=== PATIENT | male | born 1955 | race Caucasian/White ===

== ENCOUNTER 2016-10-09 02:03 | Emergency (ER) | payer BC ==
[~2016-10-09] VITALS: Ht 177.8 cm; Wt 174.0 kg
[~2016-10-09 02:03] MED LIST: AMX500 PO; LRTUNK PO; RIFA300C34 PO; SYN75 PO
[2016-10-09 02:12] VITALS: TEMP 36.6; Ht 177.8 cm; Wt 174.0 kg
[2016-10-09] MEDS ORDERED: MoRPHine SULFATE 10 MG/ML CARP/VIAL IV STA (02:29)
[2016-10-09] MEDS ORDERED: ONDANSETRON INJ 2 MG/ML 2 ML VIAL IV STA (02:29)
[2016-10-09] MEDS ORDERED: SODIUM CHLORIDE 0.9% 1000ML 1,000 ML IV ONE (02:30)
[2016-10-09 02:40] LABS: BASO % 0.4 %; BASO ABS # 0.04 K/uL (0-0.2); COMPLETE YES; EOS % 0.5 %; HEMATOCRIT 48.4 % (42-52); IG% 0.3 %; LYMPH ABS # 2.11 K/uL (1.2-3.4); MEAN CELL VOLUME 88.3 fL (80-100); MEAN CORPUSCULAR HEMOGLOBIN 30.7 pg (25-34); MEAN CORPUSCULAR HGB CONC 34.7 g/dl (32-36); MEAN PLATELET VOLUME 11.9 fL (7.4-10.4); MONO % 9.8 %; PLATELET COUNT 242 K/uL (130-400); RED BLOOD COUNT 5.48 M/uL (4.7-6.1); WHITE BLOOD COUNT 10.57 K/uL (4.8-10.8)
[2016-10-09 02:45] LABS: ISTAT IONIZED CALCIUM 1.17 mmol/l (1.12-1.32)
[2016-10-09] MEDS ORDERED: OPTIRAY 320 IV PRN (02:45)
[2016-10-09 02:57] LABS: BUN/CREATININE RATIO 19.3 (10-20); CALCIUM 8.7 mg/dl (8.5-10.1); POTASSIUM 3.8 mmol/L (3.5-5.1)
[2016-10-09 02:58] VITALS: O2SAT 93
[2016-10-09 02:59] LABS: ALB/GLOB RATIO 0.7 (0.9-2)
[2016-10-09] MEDS ORDERED: LEVO100T7 PO (03:53)
[2016-10-09] MEDS ORDERED: FLOVENT HFA 110MCG INH (04:01)
[2016-10-09] MEDS ORDERED: PRED10TA PO (04:01)
[2016-10-09] MEDS ORDERED: PROAIR HFA INH (04:06)
[2016-10-09] MEDS ORDERED: MELO15TA4 PO (04:08)
[2016-10-09] MEDS ORDERED: FURO-85 PO (04:09)
[2016-10-09] MEDS ORDERED: MULT-506 PO (04:10)
[2016-10-09] MEDS ORDERED: CHOL1000 PO (04:12)
[2016-10-09] MEDS ORDERED: ATOR-22 PO (04:13)
--- NOTE | 2016-10-09 04:31 | EMERGENCY ROOM VISIT NOTE ---
History First contact with patient: 02:26 Chief Complaint: ABDOMINAL PAIN Stated Complaint: SEVERE ABDOMINAL PAIN,VOMITING Nursing Triage Summary: Pt reports he has had abdominal pain and abdominal swelling/bloating since noon today. Pt reports the pain continued to get worse this evening. Reports nausea, but no vomiting. Diarrhea since Wednesday. No BM today. Denies PMH of abdominal issues. Stomach protuberant, hard, and tender to palpation. Pt moaning in pain. History of Present Illness The patient is a 61 year old male who presents to the Emergency Room with complaints of severe abdominal pain that has been worsening for the past 13 or 14 hours. The patient states that he has had multiple episodes of diarrhea over the past one to 2 weeks. He has had upwards of 15 watery stools daily during this interval. He states that over the past 24 hours he has had no diarrhea, but now has significant abdominal pain. The patient has been nauseated without vomiting. He has a history of hernia repair but no other abdominal surgeries. He additionally has a past history of left hip surgery 4. He does have a history of MRSA. The patient does not report having a fever or chills. No chest pain, chest tightness, or shortness of breath. He has not taken anything at home for his symptoms and rates his pain a 10/10. The pain is diffuse and does not radiate. Review of Systems More than 10 systems were reviewed and otherwise negative with the exception of history of present illness. Past Medical/Surgical History Morbid obesity and dyslipidemia Family History No pertinent family history Social History Smoking Status: Never Smoker Housing Status: lives with family Current/Historical Medications Scheduled Atorvastatin (Lipitor), 20 MG PO DAILY Cholecalciferol (Vitamin D3), 1,000 UNITS PO DAILY Furosemide (Lasix), 20 MG PO DAILY Levothyroxine Sodium (Levothyroxine Sodium), 100 MCG PO DAILY Meloxicam (Mobic), 15 MG PO DAILY Multivitamin (Multivitamin), 1 TAB PO DAILY Prednisone (Prednisone), 10 MG PO DAILY/UD [Flovent Hfa 110MCG], 2 PUFFS INH BID Scheduled PRN [Proair Hfa], 2 PUFFS INH Q6H PRN for SOB/Wheezing Allergies Coded Allergies: No Known Allergies (Verified Allergy, Unknown, ?, 12/05/08) Physical Exam Vital Signs Date Time Temp Pulse Resp B/P Pulse Ox O2 Delivery O2 Flow Rate FiO2 3/24/17 04:03 92 18 10/09/16 04:01 148/120 10/09/16 03:33 92 19 10/09/16 03:31 134/101 10/09/16 03:00 151/90 10/09/16 03:00 97 21 151/87 93 Room Air 10/09/16 02:58 93 Room Air 10/09/16 02:12 36.6 114 20 177/116 93 Room Air Physical Exam VITALS: Vitals are noted on the nurse's note and reviewed by myself. Vital signs stable. GENERAL: Well-developed, well-nourished, morbidly obese white male who appears in severe discomfort in his Emergency Department bed. HEAD: Normocephalic atraumatic. HEART: Regular rate and rhythm without murmurs gallops or rubs. LUNGS: Clear to auscultation bilaterally without wheezes, rales or rhonchi. No retractions or accessory muscle use. ABDOMEN: Hypoactive bowel sounds. Abdomen is distended and exquisitely tender throughout. No CVA tenderness. MUSCULOSKELETAL: No muscle atrophy, erythema, or edema noted. Full range of motion without joint tenderness in all extremities. Medical Decision & Procedures ER Provider Diagnostic Interpretation: Preliminary Findings Only See Final Report For Complete Findings CT ABDOMEN & PELVIS: Duodenal jejunal junction is to the right of midline, query midgut malrotation versus internal hernia. There is a high-grade SBO transition in the mid abdomen. Suspicious areas of pneumatosis, cannot exclude early ischemia. No free air, free fluid, or abscess. Normal appendix. Fatty liver. Contracted gallbladder with questionable stone. No CT evidence of pancreatitis. No obstructive uropathy. Small low-density lesion left kidney. Total left hip prosthesis. Laboratory Results 10/09/16 02:20 Red Blood Count 5.48, Mean Corpuscular Volume 88.3, Mean Corpuscular Hemoglobin 30.7, Mean Corpuscular Hemoglobin Concent 34.7, Mean Platelet Volume 11.9, Neutrophils (%) (Auto) 69.0, Lymphocytes (%) (Auto) 20.0, Monocytes (%) (Auto) 9.8, Eosinophils (%) (Auto) 0.5, Basophils (%) (Auto) 0.4, Neutrophils # (Auto) 7.30, Lymphocytes # (Auto) 2.11, Monocytes # (Auto) 1.04, Eosinophils # (Auto) 0.05, Basophils # (Auto) 0.04 10/09/16 02:20 Test 10/09/16 02:20 10/09/16 02:32 10/09/16 02:40 White Blood Count 10.57 K/uL (4.8-10.8) Red Blood Count 5.48 M/uL (4.7-6.1) Hemoglobin 16.8 g/dL (14.0-18.0) Hematocrit 48.4 % (42-52) Mean Corpuscular Volume 88.3 fL (80-100) Mean Corpuscular Hemoglobin 30.7 pg (25-34) Mean Corpuscular Hemoglobin Concent 34.7 g/dl (32-36) Platelet Count 242 K/uL (130-400) Mean Platelet Volume 11.9 fL (7.4-10.4) Neutrophils (%) (Auto) 69.0 % Lymphocytes (%) (Auto) 20.0 % Monocytes (%) (Auto) 9.8 % Eosinophils (%) (Auto) 0.5 % Basophils (%) (Auto) 0.4 % Neutrophils # (Auto) 7.30 K/uL (1.4-6.5) Lymphocytes # (Auto) 2.11 K/uL (1.2-3.4) Monocytes # (Auto) 1.04 K/uL (0.11-0.59) Eosinophils # (Auto) 0.05 K/uL (0-0.5) Basophils # (Auto) 0.04 K/uL (0-0.2) RDW Standard Deviation 47.3 fL (36.4-46.3) RDW Coefficient of Variation 14.7 % (11.5-14.5) Immature Granulocyte % (Auto) 0.3 % Immature Granulocyte # (Auto) 0.03 K/uL (0.00-0.02) Est Creatinine Clear Calc Drug Dose 126.0 ml/min Estimated GFR () 94.4 Estimated GFR (Non- 81.4 BUN/Creatinine Ratio 19.3 (10-20) Calcium Level 8.7 mg/dl (8.5-10.1) Total Bilirubin 0.7 mg/dl (0.2-1) Aspartate Amino Transf (AST/SGOT) 30 U/L (15-37) Alanine Aminotransferase (ALT/SGPT) 97 U/L (12-78) Alkaline Phosphatase 67 U/L (45-117) Total Protein 7.5 gm/dl (6.4-8.2) Albumin 3.1 gm/dl (3.4-5.0) Globulin 4.4 gm/dl (2.5-4.0) Albumin/Globulin Ratio 0.7 (0.9-2) Lipase 126 U/L (73-393) Bedside Hemoglobin 17.0 g/dl (14.0-18.0) Bedside Hematocrit 50 % (42-52) Bedside Sodium 142 mEq/L (135-144) Bedside Potassium 3.8 mEq/L (3.3-5.0) Bedside Chloride 104 mEq/L (101-112) Bedside Total CO2 23 mEq/l (24-31) Anion Gap 20.0 mmol/L (16-25) Bedside Blood Urea Nitrogen 21 mg/dl (7-18) Bedside Creatinine 1.0 mg/dl (0.6-1.3) Bedside Glucose (other) 137 mg/dl (70-99) Bedside Ionized Calcium (Suleiman) 1.17 mmol/l (1.12-1.32) Bedside Lactic Acid Venous 1.36 mmol/L (0.90-1.70) Medications Administered Medications (Trade) Dose Ordered Sig/Michelle Route Start Time Stop Time Status Last Admin Dose Admin Morphine Sulfate 8 mg 8 mg NOW STAT IV 10/09/16 02:29 10/09/16 02:32 DC 10/09/16 02:43 8 MG Sodium Chloride (Nss 1000ml) 1,000 ml @ 999 mls/hr Q1H1M ONCE IV 10/09/16 02:30 10/09/16 03:30 DC 10/09/16 02:44 999 MLS/HR Ondansetron HCl (Zofran Inj) 4 mg NOW STAT IV 10/09/16 02:29 10/09/16 02:32 DC 10/09/16 02:43 4 MG ED Course Physical exam and history were performed. Nursing notes and EMR were reviewed. Patient appears to have severe abdominal pain bringing him to the emergency department this morning. The patient was brought to my attention by nursing immediately upon his arrival to the department, and the patient was seen rapidly. The patient symptoms have been worsening over the past 13 or 14 hours. On presentation the patient is exquisitely tender, and I had significant concern for the possibility of peritonitis or other significant abdominal process. IV access was established and labs were obtained. I-STAT was performed here the patient was hydrated and medicated as above. I did elect to perform a CT scan of the abdomen and pelvis. The patient blood work is as above and was reviewed. He does not have a significant elevated white blood cell count, significant anemia, bandemia, or gross electrolyte imbalance. Lipase and transaminases were nondiagnostic. Lactic acid level was normal. The patient was reevaluated multiple times with course of his stay. After morphine and Zofran he had significant improvement of his discomfort. I reviewed the initial images of the CT scan with my attending, Dr. Cruz, who remain closely involved in patient care and decision making. We were concerned the patient had a bowel obstruction, and NG tube was placed. The NG tube immediately drained 400 mL of brown liquid. The patient CT scan was officially read by Yessenia and is as above. The CT scan was quite concerning for high-grade small bowel obstruction with suspicious areas of pneumatosis. I discussed this case with the on-call surgeon , Dr. Saenz, who recommended transfer. The case was discussed with the [facility] surgeon, Dr Myrick, who accepted the patient under her service. Appropriate consents were performed and transportation via ALS was coordinated. The patient remained in stable condition until at time of transfer. The chart was completed utilizing [employer] Speech Voice Recognition Software. Grammatical errors, random word insertions, pronoun errors, and incomplete sentences are an occasional consequence of this system due to software limitations, ambient noise, and hardware issues. Any formal questions or concerns about the content, text, or information contained within the body of this dictation should be directly addressed to the provider for clarification. . Medical Decision Differential diagnosis: Etiologies such as appendicitis, diverticulitis, PUD, biliary pathology, UTI, pancreatitis, obstruction, mesenteric ischemia, aortic pathology, infections, inflammatory bowel disease, renal colic, as well as others were entertained. Impression Primary Impression: Small bowel obstruction Additional Impression: Abdominal pain Critical Care I have personally spent greater than 30 minutes of critical care time in the direct management of this patient. This includes bedside care, interpretation of diagnostic studies, and testing, discussion with consultants, patient, and family members, and other required patient management activities. This 30 minutes is in excess of all separately billable procedures. Departure Information Referrals No Doctor, Assigned (PCP) Patient Instructions My [facility] Problem Qualifiers Additional Impression: Abdominal pain Abdominal location: generalized Qualified Codes: R10.84 - Generalized abdominal pain
[2016-10-09] MEDS ORDERED: MoRPHine SULFATE 4 MG/ML 1 ML CARP\\VIAL ONE (04:49)
[2016-10-09 04:57] VITALS: BP 180/112; PULSE 95; O2SAT 93
[2016-10-09] MEDS ORDERED: MoRPHine SULFATE 4 MG/ML 1 ML CARP\\VIAL IV ONE (05:00)
--- NOTE | 2016-10-09 07:22 | DIAGNOSTIC IMAGING REPORT ---
ABDOMEN AND PELVIS CT WITH IV CONTRAST CT DOSE: 2482.50 mGy.cm HISTORY: Generalized abdominal pain. TECHNIQUE: Multiaxial CT images of the abdomen and pelvis were performed following the use of intravenous contrast. COMPARISON STUDY: None. FINDINGS: The lung bases are clear. No pneumoperitoneum. Left total hip arthroplasty. Hepatic steatosis. A 1.4 cm hypodense lesion within the right hepatic lobe favors a cyst. The gallbladder is contracted. There is a punctate stone within the gallbladder. The spleen, adrenal glands, and pancreas are unremarkable. A punctate stone within the lower pole the right kidney. No hydronephrosis. 6 mm hypodense lesion within the upper and lower pole of the left kidney are too small to characterize. Normal bladder. The majority of the colon is decompressed. Normal appendix. Multiple dilated gas and fluid-filled loops of small bowel within the abdomen consistent with a small bowel obstruction. A clear transition point is difficult to define but may be located within the distal ileum. Distended loops of bowel measure up to 5.3 cm. IMPRESSION: 1. Multiple distended loops of small bowel within the abdomen. A clear transition point is difficult to define but may be located within the distal ileum. Therefore, this is consistent with a partial small bowel obstruction. 2. Right-sided nephrolithiasis. No hydronephrosis. 3. Hepatic steatosis. 4. Additional findings as described above. Electronically signed by: Vijay Mccollum M.D. 10/09/2016 7:21 AM Dictated Date/Time: 10/09/2016 7:14 AM
== END 2016-10-09 04:57 | disposition short-term general hospital (02) ==
LOC: C.EDB 02:07 → C.EDA 04:57
DX: K56.60 Unspecified intestinal obstruction (principal); R10.84 Generalized abdominal pain; Z98.890 Other specified postprocedural states; Z86.14 Personal history of Methicillin resistant Staphylococcus aureus infection; E66.01 Morbid (severe) obesity due to excess calories; E78.5 Hyperlipidemia, unspecified; Z79.899 Other long term (current) drug therapy

== ENCOUNTER → 2017-03-30 | Outpatient (CLI) | payer BC ==
[~2017-03-30] MED LIST changes: -AMX500 PO; +ATOR-22 PO; +CHOL1000 PO; +FLOVENT HFA 110MCG INH; +FURO-85 PO; +LEVO100T7 PO; -LRTUNK PO; +MELO15TA4 PO; +MULT-506 PO; +PRED10TA PO; +PROAIR HFA INH; -RIFA300C34 PO; -SYN75 PO
== END | disposition home or self-care (01) ==
LOC: C.PATHSPEC 16:15
PROVIDERS: ATTEND Surgery
DX: K21.0 Gastro-esophageal reflux disease with esophagitis (principal)

== ENCOUNTER 2020-09-05 13:02 | Inpatient (IN) ==
--- OUTSIDE RECORDS SUMMARY | 2020-09-05 13:07 | External Medical Summary | Continuity of Care Document ---
:1955 Author Name Rae Knight, Provider Address Unavailable Unavailable , Care Team Providers Name Role Phone Marlee Knight, Kuldeep Woodward Unavailable [email or web address], [email or web address] Unavailable Unavailable Problems Active medical history not documented Allergies and Adverse Reactions Allergy history not documented Medications Medications not documented Procedures Procedures not documented Immunizations Immunizations not documented Plan of Treatment Planned Observations Planned Goals not documented Results No Known Results Results not documented Encounters Appointment; Kuldeep Whalen M.D. 10-Feb-2010 11:30 Encounter Diagnosis: Problem not documented
[2020-09-05 13:43] LABS: Albumin Level 2.6 gm/dl (3.4-5.0); Calcium 8.6 mg/dl (8.5-10.1); Creatinine Clr Calc Pharmacy 106.3 ml/min; Est GFR (African American) 80.9; Est GFR (Non-African American) 69.8; Magnesium 2.1 mg/dl (1.8-2.4); Potassium 3.2 mmol/L (3.5-5.1)
[2020-09-05 13:45] LABS: Hematocrit (blood only) 45.2 % (42-52); Hemoglobin 15.7 g/dL (14.0-18.0); Mean Corpuscular Hemoglobin 30.8 pg (25-34); Mean Corpuscular Hgb Conc 34.7 g/dL (32-36); Mean Corpuscular Volume 88.6 fL (80-100); Mean Platelet Volume 11.6 fL (7.4-10.4); Platelet Count 234 K/uL (130-400); RDW Coefficient of Variation 13.8 % (11.5-14.5); RDW Standard Deviation 45.3 fL (36.4-46.3); White Blood Count 5.86 K/uL (4.8-10.8)
[2020-09-05 13:46] LABS: Partial Thromboplastin Ratio 1.3; Partial Thromboplastin Time 33.2 Seconds (21.0-31.0); Prothrombin Time 10.5 Seconds (9.0-12.0)
[2020-09-05 13:48] LABS: Albumin Globulin Ratio 0.5 (0.9-2); Bilirubin,Total 0.5 mg/dl (0.2-1); Total Protein 7.6 gm/dl (6.4-8.2); Troponin I 0.024 ng/ml (0-0.045)
--- NOTE | 2020-09-05 13:48 | XRay Report ---
XR chest 1V portable CLINICAL HISTORY: Resp sx c/w COVID-19 COMPARISON STUDY: Chest radiograph May 18, 2009. FINDINGS: Dual lead left subclavian pacemaker is in place. Elevation/eventration of the right hemidia phragm is unchanged. Moderate cardiomegaly is unchanged. Mild to bilateral hilar prominence is noted. Moderate multifocal bilateral opacities are present. There is mild interstitial thickening. IMPRESSION: 1. Mild to moderate bilateral airspace opacities with interstitial thickening. An infectious process is favored. Pulmonary edema could appear similar although is considered less likely. Radiographic fol low-up is recommended to ensure resolution. 2. Moderate cardiomegaly. ACT 112: Negative or not required by law. Electronically signed by: Kentrell Perez M.D. 09/05/2020 1:47 PM
[2020-09-05 14:09] LABS: Basophils # (auto) 0.02 K/uL (0-0.2); Basophils % (auto) 0.3 %; Immature Granulocytes # (auto) 0.02 K/uL (0.00-0.02); Immature Granulocytes % (auto) 0.3 %; Lymphocytes % (auto) 18.8 %; Monocytes # (auto) 0.29 K/uL (0.11-0.59); Monocytes % (auto) 4.9 %; Neutrophils # (auto) 4.43 K/uL (1.4-6.5); Neutrophils % (auto) 75.7 %
[2020-09-05] MEDS ORDERED: cefTRIAXone SODIUM 1,000 MG/50 ML BAG IV STA (14:13)
[2020-09-05] MEDS ORDERED: AZITHROMYCIN 500 MG in DEXTROSE 5% 250 ML IV STA (14:13)
[2020-09-05 14:26] LABS: Influenza A virus by PCR Negative (Neg); Influenza B virus by PCR Negative (Neg); RSV by PCR Negative (Neg)
--- NOTE | 2020-09-05 14:29 | History & Physical Report ---
Date of Service September 05, 2020 Assessment & Plan (1) Acute respiratory failure with hypoxia: Using accessory muscles. Secondary to COVID-19 pneumonia. Procalcitonin negative for secondary bacterial infection therefore discontinue further antibiotics. (2) Pneumonia due to COVID-19 virus: Lack of evidence of efficacy of remdesivir and convalescent plasma with potential risk this far out from illness. Dexamethasone 6 mg IV daily for total of 10 days (3) Elevated d-dimer: This appears to be in line with his COVID-19 infection. Doubtful pulmonary embolism and as he is noted not to be improving. Consider outpatient short-term low-dose anticoagulation. Wells score 0 - 1.5 depending on mobilization. (4) Obstructive sleep apnea: Continue CPAP at night with 6 cm H2O (5) Congestive heart failure: Unknown if diastolic versus systolic. Appears to be euvolemic at present. Continue Entresto and metoprolol succinate. Continue Lasix 20 mg p.o. twice daily (6) Presence of combination internal cardiac defibrillator (ICD) and pacemaker: Patient is unclear on the reasons for this pain implanted, currently not in a paced rhythm. Monitor on telemetry. (7) Hypothyroidism: TSH 2.18 Continue levothyroxine 112 mcg p.o. every morning (8) BPH (benign prostatic hyperplasia): Continue tamsulosin 0.4 mg at bedtime (9) Chronic hip pain: Continue home dose of duloxetine and tramadol. (10) Acne rosacea: Continue doxycycline 20 mg twice daily (11) DVT prophylaxis: Lovenox 80 mg SQ twice daily (increased dose due to morbid obesity and COVID-19 pneumonia) Admission and Anticipated Discharge Date Admission Date: September 05, 2020 History of Present Illness Chief Complaint: COVID-19 symptoms Primary Care Provider: Gregory Diamond Nico Cancino is a 65-year-old male who presents to the ER with 1 week of shortness of breath. He reports that he had his first COVID-19 vaccination 12 days ago. He initially was doing well after this. However, 1 week ago he started having fever, chills, shortness of breath, cough, change in taste, myalgias, mild headache, diarrhea. He denies any nausea, vomiting, chest or abdominal pain. No known COVID-19 exposure. His underwent a lumpectomy today and had a negative Covid test 4 days ago and is currently asymptomatic. No prior past medical history on file. Somewhat limited by patient recollection and educated guesses from his medication list. He reports only specialist is his cardiology Dr Vallejo whom he sees for congestive heart failure. Unknown reason for his ICD/pacemaker other than it was put in under an emergency per patient recollection. He reports a possible mild myocardial infarction last summer although this was treated medically with no stents or bypass and he reports his cardiac catheterization showed nonobstructive coronary artery disease. He also reports a history of congestive heart failure although unknown ejection fraction. No known valvular heart disease per patient recollection. Reports stable benign prostatic hypertrophy on tamsulosin -no current lower urinary tract symptoms. 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 He denies taking any chronic suppressive antibiotic therapy. Reports taking duloxetine and tramadol for his ongoing left hip pain. Medical and surgical history otherwise stable as below. In the ER chest x-ray was concerning for mild to moderate bilateral airspace opacities concerning for viral pneumonia. He was initially treated with ceftriaxone and azithromycin. He was referred to medicine for admission and ongoing management of hypoxia and bilateral pneumonia. Allergies Allergy/AdvReac Type Severity Reaction Status Date / Time No Known Allergies Allergy Unknown ? Verified 09/05/20 15:01 Home Medications Medication Instructions Recorded Confirmed Type atorvastatin 20 mg PO PM #0 tab 10/09/16 09/05/20 History cholecalciferol (vitamin D3) 25 mcg PO QAM #0 tab 10/09/16 09/05/20 History [Vitamin D3] furosemide [Lasix] 20 mg PO BID #0 tab 10/09/16 09/05/20 History multivitamin 1 tab PO QAM #0 tab 10/09/16 09/05/20 History acetaminophen [Tylenol Arthritis] 1,300 mg PO Q12H PRN 09/05/20 09/05/20 History cyclobenzaprine 10 mg PO DIRECTED PRN 09/05/20 09/05/20 History doxycycline hyclate 20 mg PO BID 09/05/20 09/05/20 History [id number]-acetaminophen 30 ml PO QID PRN 09/05/20 09/05/20 History [Vicks NyQuil] duloxetine 60 mg PO QAM 09/05/20 09/05/20 History levothyroxine 112 mcg PO QAM 09/05/20 09/05/20 History metoprolol succinate 50 mg PO QAM 09/05/20 09/05/20 History sacubitril-valsartan [Entresto] 1 tab PO BID 09/05/20 09/05/20 History tamsulosin 0.4 mg PO HS 09/05/20 09/05/20 History tramadol 100 mg PO QAM 09/05/20 09/05/20 History Past Med/Surg History Medical History (Updated 09/06/20 @ 10:41 by Natan Ferguson MD) Acne rosacea BPH (benign prostatic hyperplasia) High cholesterol Hypothyroidism Obstructive sleep apnea Presence of combination internal cardiac defibrillator (ICD) and pacemaker Septic hip Surgical History (Updated 09/05/20 @ 16:16 by Natan Ferguson MD) History of arthroscopic knee surgery History of hip surgery x4 with MRSA infection History of tonsillectomy History of umbilical hernia repair History of uvulectomy Social History Smoking Status: Former smoker Tobacco Type: Smokeless Tobacco (Dip or Chew) Do You Dip or Chew Tobacco: Yes; Hx Alcohol Use: No Hx Substance Use: No Preferred Language: Venezuelan Communication Ability: Effective Beliefs That Will Affect Care: None Current Living Situation: Spouse Current Living Situation Comment: At home with Feels Safe at Home: Yes Safety Concerns: Feels Safe At This Time Assistive Devices: CPAP and Glasses Review of Systems Review of Systems: All systems reviewed & are unremarkable except as noted in HPI & below Physical Exam Constitutional: well developed, well nourished and + morbidly obese; no acute distress Eyes: PERRL, conjunctivae normal, anicteric sclerae ENMT: Ears: no external ear abnormality Nose: no external nose abnormality Mouth: + dry oral mucous membranes Neck: trachea midline, no thyromegaly Respiratory: + labored breathing, + retractions, + uses accessory muscles and able to speak in complete sentences Auscultation: + diminished lung sounds (Poor inspiratory effort throughout) and + wheezes (Mild expiratory wheeze); no rales and no rhonchi Cardiovascular: Rate/Rhythm: regular rate and regular rhythm Heart Sounds: no murmur Vessels: no JVD Extremities: normal capillary refill and + pedal edema (Trace pitting in ankles only); no calf tenderness Gastrointestinal (Abdomen): normal bowel sounds, soft, nontender, no hepatosplenomegaly Musculoskeletal: no cyanosis or clubbing, extremities motor strength 5/5 Skin: no rashes, warm and dry Neurologic: moves all extremities and awake; no focal motor deficits and not confused Psychiatric: A+Ox3, euthymic affect Genitourinary: no CVA tenderness Results & Data Results & Data ([facility]) Vital Signs (Past 12 Hours) Vital Signs Temp Pulse Resp BP Pulse Ox 09/05/20 13:25 93 09/05/20 13:15 37.1 C 101 H 24 138/82 90 Diagnostic Findings XR chest 1V portable IMPRESSION: 1. Mild to moderate bilateral airspace opacities with interstitial thickening. An infectious process is favored. Pulmonary edema could appear similar although is considered less likely. Radiographic follow-up is recommended to ensure resolution. 2. Moderate cardiomegaly. Medications Administered ER medications given: Ceftriaxone 1 g IV Azithromycin 500 mg IV ECG Indication: SOB/dyspnea Rate (beats per minute): 97 Rhythm: normal sinus (With premature supraventricular complexes) Findings: + RBBB Change: the following changes noted (PVC no longer present) Code Status & VTE Plan Code Status Full as discussed with the patient VTE Prophylaxis Plan VTE Prophylaxis will be ordered: Yes PG Care Time/CCT Total # of Minutes Spent Total Time Spent with Patient: Total time spent is greater than 50% in coordination of care (as documented) at patient's floor/unit and/or counseling patient: Coding Level of Care Code 16665 Initial Inpt Care Lvl 3 Diagnoses Acute respiratory failure with hypoxia J96.01 Pneumonia due to COVID-19 virus U07.1; J12.82 Elevated d-dimer R79.89 Obstructive sleep apnea G47.33 Congestive heart failure I50.9 Presence of combination internal cardiac defibrillator (ICD) and pacemaker Z95.810 Hypothyroidism E03.9 BPH (benign prostatic hyperplasia) N40.0 Chronic hip pain M25.559; G89.29 Acne rosacea L71.9 DVT prophylaxis Z29.9
--- NOTE | 2020-09-05 14:39 | Emergency Department Note ---
History of Present Illness General Chief complaint: Shortness of Breath/Dyspnea Time Seen by Provider: 09/05/20 13:07 Source: patient Mode of arrival: ambulatory Limitations: no limitations History of Present Illness Provider complaint: Cough and shortness of breath Resents to the ED with a chief complaint of not feeling well for the past week. He states that his symptoms are progressively worsening. He reports a cough for the past 2 days. He reports diarrhea daily for about a week. He reports shortness of breath that worsened last night and into today. He has fatigue and has had intermittent fevers. He reports having had a Covid immunization #1, 12 days ago. The patient states that his shortness of breath is significantly worse with exertion. He has not taken anything for his symptoms. Home Medications Medication Instructions Recorded Confirmed Type ATORVASTATIN (LIPITOR) 20 mg PO DAILY #0 tab 10/09/16 History CHOLECALCIFEROL (VITAMIN D3) 1,000 unit PO DAILY #0 tab 10/09/16 History FLOVENT HFA 110MCG 2 puff INHALATION BID #0 10/09/16 History FUROSEMIDE (LASIX) 20 mg PO DAILY #0 tab 10/09/16 History LEVOTHYROXINE SODIUM 100 mcg PO DAILY #0 tab 10/09/16 History MELOXICAM (MOBIC) 15 mg PO DAILY #0 tab 10/09/16 History Multivitamin 1 tab PO DAILY #0 tab 10/09/16 History PROAIR HFA 2 puff INHALATION Q6H PRN #0 10/09/16 History Prednisone 10 mg PO DAILY/UD #0 tab 10/09/16 History Allergies Allergy/AdvReac Type Severity Reaction Status Date / Time No Known Allergies Allergy Unknown ? Verified 12/05/08 12:02 Past Med/Surg History Medical History (Updated 09/05/20 @ 14:39 by Taco Armijo DO) High cholesterol Presence of combination internal cardiac defibrillator (ICD) and pacemaker Social History Smoking Status: Never smoker Tobacco Type: Smokeless Tobacco (Dip or Chew) Feels Safe at Home: Yes Review of Systems A total of 10 systems reviewed and were otherwise negative Physical Exam Vital Signs Vital Signs - 24 hr 09/05/20 13:06 09/05/20 13:08 09/05/20 13:15 Temperature 37.1 C Temperature Source Oral Pulse Rate 97 H 97 H 101 H Pulse Rate from SpO2 Sensor 100 H 99 H Respiratory Rate 25 H 24 24 Respiratory Effort / Characteristics Short of Breath Respiratory Depth Deep Respiratory Pattern Tachypnea Blood Pressure 138/82 138/82 Blood Pressure Mean 100 100 Blood Pressure Position Sitting Pulse Oximetry 90 91 90 Oxygen Delivery Method Room Air Oxygen Flow Rate Sepsis Recent Fever Within 48 Hours No Sepsis New/Unexplained Change in Mental Status No Sepsis Action Taken by Nursing Physician Notified 09/05/20 13:25 09/05/20 13:30 09/05/20 14:00 Temperature Temperature Source Pulse Rate 96 H 84 Pulse Rate from SpO2 Sensor 94 H 85 Respiratory Rate 25 H 23 Respiratory Effort / Characteristics Respiratory Depth Respiratory Pattern Blood Pressure Blood Pressure Mean Blood Pressure Position Pulse Oximetry 93 91 95 Oxygen Delivery Method Nasal Cannula Oxygen Flow Rate 2 Sepsis Recent Fever Within 48 Hours Sepsis New/Unexplained Change in Mental Status Sepsis Action Taken by Nursing 09/05/20 14:30 Temperature Temperature Source Pulse Rate 84 Pulse Rate from SpO2 Sensor 84 Respiratory Rate Respiratory Effort / Characteristics Respiratory Depth Respiratory Pattern Blood Pressure Blood Pressure Mean Blood Pressure Position Pulse Oximetry 97 Oxygen Delivery Method Oxygen Flow Rate Sepsis Recent Fever Within 48 Hours Sepsis New/Unexplained Change in Mental Status Sepsis Action Taken by Nursing CONSTITUTIONAL/VITAL SIGNS: Reviewed / noted above. GENERAL: Non-toxic in appearance. Obese. INTEGUMENTARY: Warm, dry, and [place]. HEAD: Normocephalic. EYES: without scleral icterus or trauma. ENT/OROPHARYNX: clear and moist. LYMPHADENOPATHY/NECK: Is supple without lymphadenopathy or meningismus. RESPIRATORY: Lungs reveal crackles in the entire right lung jasso as well as the left mid and lower lung jasso with mild increased work of breathing at rest. CARDIOVASCULAR: Regular rate and rhythm. GI/ABDOMEN: Soft and nontender. No organomegaly or pulsatile mass. No rebound or guarding. Normal bowel sounds. EXTREMITIES: Warm and well perfused. BACK: No CVA tenderness. NEUROLOGICAL: Intact without focal deficits. PSYCHIATRIC: normal affect. MUSCULOSKELETAL: Normally developed with good muscle tone. TRIAGE NURSING DOCUMENTATION REVIEWED. Course Administered Medications Discontinued Medications Ceftriaxone Sodium (Rocephin) 1,000 mg in 50 mls @ 100 mls/hr IV NOW STA Stop: 09/05/20 14:42 Last Admin: 09/05/20 14:43 Dose: 100 mls/hr Documented by: [id number] Medical Decision Making Differential Diagnosis The differential was considered includes acute myocardial infarction, acute coronary syndrome, myocarditis, pericarditis, pericardial effusions /tamponad, esophageal perforation, pulmonary embolism, pneumonia, pneumothorax, cardiomyopathy, congestive heart, anemia , COPD/asthma exacerbation. Medical Records Attestation: I reviewed the patient's medical records. Home Medications Current Medication List: was personally reviewed by me Laboratory Data Attestation: I reviewed the patient's lab results. Result diagrams: 09/05/20 13:18 09/05/20 13:18 Lab Results 09/05/20 09/05/20 09/05/20 Range/Units 13:15 13:15 13:15 WBC (4.8-10.8) K/uL RBC (4.7-6.1) M/uL Hgb (14.0-18.0) g/dL Hct (42-52) % MCV (80-100) fL MCH (25-34) pg MCHC (32-36) g/dL RDW Std Deviation (36.4-46.3) fL RDW Coeff of Matthew (11.5-14.5) % Plt Count (130-400) K/uL MPV (7.4-10.4) fL Immature Gran % (Auto) % Neut % (Auto) % Lymph % (Auto) % Craven % (Auto) % Eos % (Auto) % Baso % (Auto) % Neut # (Auto) (1.4-6.5) K/uL Lymph # (Auto) (1.2-3.4) K/uL Craven # (Auto) (0.11-0.59) K/uL Eos # (Auto) (0-0.5) K/uL Baso # (Auto) (0-0.2) K/uL Immature Gran # (Auto) (0.00-0.02) K/uL PT (9.0-12.0) Seconds INR (0.9-1.1) APTT (21.0-31.0) Seconds PTT Ratio Sodium (136-145) mmol/L Potassium (3.5-5.1) mmol/L Chloride (98-107) mmol/L Carbon Dioxide (21-32) mmol/L Anion Gap (3-11) BUN (7-18) mg/dl Creatinine (0.6-1.4) mg/dl Est Cr Clr Drug Dosing ml/min Est GFR ( Amer) Est GFR (Non-Af Amer) BUN/Creatinine Ratio (10-20) Glucose (70-99) mg/dl Calcium (8.5-10.1) mg/dl Magnesium (1.8-2.4) mg/dl Total Bilirubin (0.2-1) mg/dl AST (15-37) U/L ALT (12-78) U/L Alkaline Phosphatase (45-117) U/L Troponin I (0-0.045) ng/ml NT-Pro-B Natriuret Pep (0-900) pg/ml Total Protein (6.4-8.2) gm/dl Albumin (3.4-5.0) gm/dl Globulin (2.5-4.0) gm/dl Albumin/Globulin Ratio (0.9-2) COVID-19 Eval Order CovFluRsv at [facility] SARS-CoV-2 (PCR) POSITIVE A* (Negative) Influenza Type A (PCR) Negative (Neg) Influ A Molecular Assay Cancelled Influenza Type B (PCR) Negative (Neg) Influ B Molecular Assay Cancelled RSV (RT-PCR) Negative (Neg) 09/05/20 09/05/20 09/05/20 Range/Units 13:18 13:18 13:18 WBC 5.86 (4.8-10.8) K/uL RBC 5.10 (4.7-6.1) M/uL Hgb 15.7 (14.0-18.0) g/dL Hct 45.2 (42-52) % MCV 88.6 (80-100) fL MCH 30.8 (25-34) pg MCHC 34.7 (32-36) g/dL RDW Std Deviation 45.3 (36.4-46.3) fL RDW Coeff of Matthew 13.8 (11.5-14.5) % Plt Count 234 (130-400) K/uL MPV 11.6 H (7.4-10.4) fL Immature Gran % (Auto) 0.3 % Neut % (Auto) 75.7 % Lymph % (Auto) 18.8 % Craven % (Auto) 4.9 % Eos % (Auto) 0.0 % Baso % (Auto) 0.3 % Neut # (Auto) 4.43 (1.4-6.5) K/uL Lymph # (Auto) 1.10 L (1.2-3.4) K/uL Craven # (Auto) 0.29 (0.11-0.59) K/uL Eos # (Auto) 0.00 (0-0.5) K/uL Baso # (Auto) 0.02 (0-0.2) K/uL Immature Gran # (Auto) 0.02 (0.00-0.02) K/uL PT 10.5 (9.0-12.0) Seconds INR 1.0 (0.9-1.1) APTT 33.2 H (21.0-31.0) Seconds PTT Ratio 1.3 Sodium 140 (136-145) mmol/L Potassium 3.2 L (3.5-5.1) mmol/L Chloride 103 (98-107) mmol/L Carbon Dioxide 28 (21-32) mmol/L Anion Gap 9.0 (3-11) BUN 13 (7-18) mg/dl Creatinine 1.11 (0.6-1.4) mg/dl Est Cr Clr Drug Dosing 106.3 ml/min Est GFR ( Amer) 80.9 Est GFR (Non-Af Amer) 69.8 BUN/Creatinine Ratio 12.0 (10-20) Glucose 142 H (70-99) mg/dl Calcium 8.6 (8.5-10.1) mg/dl Magnesium 2.1 (1.8-2.4) mg/dl Total Bilirubin 0.5 (0.2-1) mg/dl AST 61 H (15-37) U/L ALT 70 (12-78) U/L Alkaline Phosphatase 64 (45-117) U/L Troponin I 0.024 (0-0.045) ng/ml NT-Pro-B Natriuret Pep 764 (0-900) pg/ml Total Protein 7.6 (6.4-8.2) gm/dl Albumin 2.6 L (3.4-5.0) gm/dl Globulin 5.0 H (2.5-4.0) gm/dl Albumin/Globulin Ratio 0.5 L (0.9-2) COVID-19 Eval Order SARS-CoV-2 (PCR) (Negative) Influenza Type A (PCR) (Neg) Influ A Molecular Assay Influenza Type B (PCR) (Neg) Influ B Molecular Assay RSV (RT-PCR) (Neg) Imaging Data Radiologist's Impression: XR chest 1V portable CLINICAL HISTORY: Resp sx c/w COVID-19 COMPARISON STUDY: Chest radiograph May 18, 2009. FINDINGS: Dual lead left subclavian pacemaker is in place. Elevation/eventration of the right hemidiaphragm is unchanged. Moderate cardiomegaly is unchanged. Mild to bilateral hilar prominence is noted. Moderate multifocal bilateral opacities are present. There is mild interstitial thickening. IMPRESSION: 1. Mild to moderate bilateral airspace opacities with interstitial thickening. An infectious process is favored. Pulmonary edema could appear similar although is considered less likely. Radiographic follow-up is recommended to ensure resolution. 2. Moderate cardiomegaly. ECG Data Attestation: I personally reviewed and interpreted this ECG as follows: Indication: + SOB/dyspnea Rate (beats per minute): 100 Rhythm: + sinus rhythm ECG ST segments: no ST depression ECG Findings: no PVCs MDM Narrative This is a 65-year-old male who presents to the ED as above with worsening respiratory symptoms as well as fevers and cough and fatigue. He states that he had his first Covid immunization 12 days ago. He has had the symptoms for about a week. He is worse when he exerts himself. The patient on my exam is obese. He does appear to have some mild increased work of breathing. His lung sounds reveal crackles on the entire right side and left base. Chest x-ray shows bilateral pneumonia. CBC and chemistry panel was unremarkable. EKG shows a sinus rhythm with a right bundle branch block no acute injury. Troponin is negative. BNP is negative. The patient was told the results. He was started on IV Rocephin and IV Zithromax. He will be seen by the hospitalist for further evaluation and care. Impression & Plan Bilateral interstitial pneumonia, Acute dyspnea Discharge Plan Visit Data Chief Complaint: Shortness of Breath/Dyspnea ED Provider: Taco Armijo Discharge Problem: Bilateral interstitial pneumonia, Acute dyspnea Patient Disposition: Being Evaluated by Hospitalist Forms Stand Alone Forms: My [facility] [place] [employer]pulse Prescriptions Prescriptions: No Action LEVOTHYROXINE SODIUM 100 MCG tablet 100 mcg PO DAILY Qty: 0 RF: 0 FLOVENT HFA 110MCG 2 puff Inhalation BID Qty: 0 RF: 0 Prednisone 10 MG tablet 10 mg PO DAILY/UD Qty: 0 RF: 0 PROAIR HFA 2 puff Inhalation Q6H PRN (Reason: SOB/Wheezing) Qty: 0 RF: 0 MELOXICAM (MOBIC) 15 MG tablet 15 mg PO DAILY Qty: 0 RF: 0 FUROSEMIDE (LASIX) 20 MG tablet 20 mg PO DAILY Qty: 0 RF: 0 Multivitamin tablet 1 tab PO DAILY Qty: 0 RF: 0 CHOLECALCIFEROL (VITAMIN D3) 1,000 UNIT tablet 1,000 unit PO DAILY Qty: 0 RF: 0 ATORVASTATIN (LIPITOR) 20 MG tablet 20 mg PO DAILY Qty: 0 RF: 0 Referrals Referrals: Gregory Diamond [Primary Care Provider] -
[2020-09-05 14:45] LABS: SARS CoV2 RNA(COVID-19) InHosp POSITIVE (Negative)
[2020-09-05] MEDS ORDERED: DEXAMETHASONE SOD INJ 4 MG/ML VIAL IV STA (15:02)
[2020-09-05 15:27] LABS: C Reactive Protein 14.7 mg/dl (0-0.29); Ferritin 1073.1 ng/ml (8-388); Thyroid Stimulating Hormone 2.18 uIu/ml (0.300-4.500)
[2020-09-05 16:19] LABS: D Dimer 1260 ug/L FEU (0-500)
[2020-09-05] MEDS ORDERED: ONDANSETRON INJ 2 MG/ML 2 ML VIAL IV PRN (17:42)
[2020-09-05] MEDS ORDERED: ALUMINUM/MAGNESIUM SUSP 30 ML UDC PO PRN (17:42)
[2020-09-05] MEDS ORDERED: POLYETHYLENE (MIRALAX) 17 GM PACK PO PRN (17:42)
[2020-09-05] MEDS ORDERED: ACETAMINOPHEN 325 MG TAB PO PRN (17:42)
[2020-09-05] MEDS: FUROSEMIDE 20 MG TAB PO SCH (18:41)
[2020-09-05] MEDS ORDERED: POTASSIUM CHLORIDE CRTAB 20 MEQ TABCR PO STA (18:49)
[2020-09-05] MEDS: ATORVASTATIN 20 MG TAB PO SCH (20:23)
[2020-09-05] MEDS: TAMSULOSIN HCL 0.4 MG CAP PO SCH (20:24)
[2020-09-05] MEDS: ENOXAPARIN 80 MG/0.8 ML SYR SQ SCH (20:25)
[2020-09-05] MEDS ORDERED: POTASSIUM CHLORIDE CRTAB 20 MEQ TABCR PO ONE (21:00)
[2020-09-05] MEDS: SACUBITRIL-VALSARTAN 97-103 MG TAB PO SCH (22:24)
[2020-09-06] MEDS: LEVOTHYROXINE SODIUM 112 MCG TABLET PO SCH (06:23)
--- NOTE | 2020-09-06 06:28 | Electrocardiogram Report ---
Test Reason : Blood Pressure : / mmHG Vent. Rate : 097 BPM Atrial Rate : 097 BPM P-R Int : 184 ms QRS Dur : 176 ms QT Int : 428 ms P-R-T Axes : 037 -82 -03 degrees QTc Int : 543 ms Suspect unspecified pacemaker failure Sinus rhythm with Premature supraventricular complexes Left axis deviation Right bundle branch block Inferior infarct , age undetermined Anterolateral infarct , age undetermined Abnormal ECG When compared with ECG of 09-OCT-2016 02:18, QRS duration has increased Premature ventricular complexes are no longer Present Confirmed by Chris Shannon ([id number]) on 09/06/2020 6:27:44 AM Referred By: REFERRED SELF Confirmed By:Chris Shannon
[2020-09-06 07:17] LABS: Hematocrit (blood only) 42.6 % (42-52); Hemoglobin 14.5 g/dL (14.0-18.0); Mean Platelet Volume 11.2 fL (7.4-10.4); Platelet Count 243 K/uL (130-400); RDW Coefficient of Variation 13.6 % (11.5-14.5); RDW Standard Deviation 44.3 fL (36.4-46.3); Red Blood Count 4.84 M/uL (4.7-6.1); White Blood Count 4.51 K/uL (4.8-10.8)
[2020-09-06 07:44] LABS: ALC (manual) 0.64 K/uL (1.2-3.4); ANC (manual) 3.63 K/uL (1.4-6.5); BUN Creatinine Ratio 14.3 (10-20); Calcium 8.9 mg/dl (8.5-10.1); Creatinine Clr Calc Pharmacy 122.6 ml/min; Est GFR (African American) 94.1; Est GFR (Non-African American) 81.2; Lymphocytes # (manual) 0.64 K/uL (1.2-3.4); Lymphocytes % (manual) 14.2 %; Monocytes # (manual) 0.24 K/uL (0.11-0.59); Monocytes % (manual) 5.3 %; Neutrophils # (manual) 3.63 K/uL (1.4-6.5); Neutrophils % (manual) 80.5 %; Potassium 3.4 mmol/L (3.5-5.1)
[2020-09-06] MEDS: CHOLECALCIFEROL 1,000 UNITS 25 MCG TAB PO SCH (09:54)
[2020-09-06] MEDS: FUROSEMIDE 20 MG TAB PO SCH ×2 (09:54→18:06)
[2020-09-06] MEDS: SACUBITRIL-VALSARTAN 97-103 MG TAB PO SCH ×2 (09:54→20:49)
[2020-09-06] MEDS: METOPROLOL SUCC 50MG EXT REL TAB PO SCH (09:55)
[2020-09-06] MEDS: MULTIVITAMIN TAB PO SCH (09:55)
[2020-09-06] MEDS: DULoxetine HCL 60 MG CAP PO SCH (09:55)
[2020-09-06] MEDS: ENOXAPARIN 80 MG/0.8 ML SYR SQ SCH ×2 (09:56→20:49)
[2020-09-06] MEDS ORDERED: traMADol HCL 50 MG TABLET PO PRN (10:42)
--- NOTE | 2020-09-06 13:50 | Hospitalist Progress Note ---
Date of Service September 06, 2020 Assessment & Plan (1) Acute respiratory failure with hypoxia: Using accessory muscles. Secondary to COVID-19 pneumonia. stable on 5L NC, saturations 95%, no distress try to titrate as tolerated, keep lungs dry with home dose of Lasix 20mg BID (2) Pneumonia due to COVID-19 virus: Lack of evidence of efficacy of remdesivir and convalescent plasma with potential risk this far out from illness. Dexamethasone 6 mg IV daily for total of 10 days, day 2 today will give Zithromax 500mg today due to productive cough add flutter valve (3) Hypokalemia: 3.4 this morning, will give KCl 20 TID repeat tomorrow (4) Obstructive sleep apnea: Continue CPAP at night with 6 cm H2O (5) Congestive heart failure: Unknown if diastolic versus systolic. Appears to be euvolemic at present. Continue Entresto and metoprolol succinate. Continue Lasix 20 mg p.o. twice daily, keep lungs dry with COVID (6) Presence of combination internal cardiac defibrillator (ICD) and pacemaker: Patient is unclear on the reasons for this pain implanted, currently not in a paced rhythm. Monitor on telemetry. (7) Hypothyroidism: TSH 2.18 Continue levothyroxine 112 mcg p.o. every morning (8) BPH (benign prostatic hyperplasia): Continue tamsulosin 0.4 mg at bedtime (9) Chronic hip pain: Continue home dose of duloxetine and tramadol. (10) Acne rosacea: Continue doxycycline 20 mg twice daily (11) DVT prophylaxis: Lovenox 80 mg SQ twice daily (increased dose due to morbid obesity and COVID-19 pneumonia) Admission and Anticipated Discharge Date Admission Date: September 05, 2020 Subjective patient resting comfortably, he is on 5L, saturations 94%, no distress, using his belly a little for breathing reviewed chart and discussed recent history with him got the vaccine, Pfizer, on 08/24, he has no idea where he contracted the virus but had symptoms about 8 days ago his is not sick and she was negative for COVID 4 days ago he does not really leave his home, no known sick contacts no fever/chills/sweats, he is eating fairly well, has a cough with some sputum production no diarrhea, no vomiting labs show k is 3.4, Cr is 0.98, WBC 4.5k, Hb 14.5 Review of Systems Review of Systems: All systems reviewed & are unremarkable except as noted in Subjective Respiratory: + cough, + dyspnea, + dyspnea on exertion and + sputum production Physical Exam Constitutional: well developed, + morbidly obese and comfortable; no acute distress Neck: trachea midline, no thyromegaly + thick neck Respiratory: + uses accessory muscles (belly breathing), + cough and + tachypneic; no respiratory distress Auscultation: lungs clear to auscultation bilaterally Cardiovascular: Rate/Rhythm: regular rate and regular rhythm Heart Sounds: normal S1 and normal S2; no murmur Vessels: no JVD Extremities: normal capillary refill and + edema (1+ in ankles) Gastrointestinal (Abdomen): normal bowel sounds, soft, nontender, no hepatosplenomegaly Musculoskeletal: no cyanosis or clubbing, extremities motor strength 5/5 Skin: no rashes, warm and dry Neurologic: patellar DTR's 2+ bilat, sensation intact and PERRL, EOMI, accommodation nl, no face palsy, no dysarthria Psychiatric: A+Ox3, euthymic affect Lymphatic: no cervical or axillary lymphadenopathy Results & Data Results & Data ([facility]) Vital Signs (Past 12 Hours) Vital Signs Temp Pulse Pulse Resp BP Pulse Ox Pulse Ox 09/06/20 10:45 36.4 C L 83 20 144/85 H 91 09/06/20 03:21 73 21 92 09/06/20 03:00 36.8 C 74 16 127/65 93 93 Laboratory Results Laboratory Results - last 24 hr 09/05/20 09/05/20 09/05/20 13:15 13:18 13:18 WBC RBC Hgb Hct MCV MCH MCHC RDW Std Deviation RDW Coeff of Matthew Plt Count MPV Immature Gran % (Auto) 0.3 Neut % (Auto) 75.7 Lymph % (Auto) 18.8 Dolores % (Auto) 4.9 Eos % (Auto) 0.0 Baso % (Auto) 0.3 Neut # (Auto) 4.43 Lymph # (Auto) 1.10 L [place]ores # (Auto) 0.29 Eos # (Auto) 0.00 Baso # (Auto) 0.02 Immature Gran # (Auto) 0.02 Neutrophils % (Manual) Lymphocytes % (Manual) Monocytes % (Manual) Neutrophils # (Manual) Total Absolute Neuts Lymphocytes # (Manual) Total Abs Lymphocytes Monocytes # (Manual) D-Dimer Sodium Potassium Chloride Carbon Dioxide Anion Gap BUN Creatinine Est Cr Clr Drug Dosing Est GFR ( Amer) Est GFR (Non-Af Amer) BUN/Creatinine Ratio Glucose Calcium Ferritin Total Bilirubin 0.5 Alkaline Phosphatase 64 Lactate Dehydrogenase Total Creatine Kinase Troponin I 0.024 C-Reactive Protein NT-Pro-B Natriuret Pep 764 Total Protein 7.6 Globulin 5.0 H Albumin/Globulin Ratio 0.5 L Procalcitonin TSH SARS-CoV-2 (PCR) POSITIVE A* Hepatitis C Ab Screen Influenza Type A (PCR) Negative Influenza Type B (PCR) Negative RSV (RT-PCR) Negative 09/05/20 09/05/20 09/05/20 13:18 13:18 13:18 WBC RBC Hgb Hct MCV MCH MCHC RDW Std Deviation RDW Coeff of Matthew Plt Count MPV Immature Gran % (Auto) Neut % (Auto) Lymph % (Auto) Dolores % (Auto) Eos % (Auto) Baso % (Auto) Neut # (Auto) Lymph # (Auto) Dolores # (Auto) Eos # (Auto) Baso # (Auto) Immature Gran # (Auto) Neutrophils % (Manual) Lymphocytes % (Manual) Monocytes % (Manual) Neutrophils # (Manual) Total Absolute Neuts Lymphocytes # (Manual) Total Abs Lymphocytes Monocytes # (Manual) D-Dimer 1260 H* Sodium Potassium Chloride Carbon Dioxide Anion Gap BUN Creatinine Est Cr Clr Drug Dosing Est GFR ( Amer) Est GFR (Non-Af Amer) BUN/Creatinine Ratio Glucose Calcium Ferritin 1073.1 H Total Bilirubin Alkaline Phosphatase Lactate Dehydrogenase 448 H Total Creatine Kinase 589 H Troponin I C-Reactive Protein 14.70 H NT-Pro-B Natriuret Pep Total Protein Globulin Albumin/Globulin Ratio Procalcitonin TSH 2.180 SARS-CoV-2 (PCR) Hepatitis C Ab Screen Influenza Type A (PCR) Influenza Type B (PCR) RSV (RT-PCR) 09/05/20 09/06/20 09/06/20 13:18 06:45 06:45 WBC 4.51 L RBC 4.84 Hgb 14.5 Hct 42.6 MCV 88.0 MCH 30.0 MCHC 34.0 RDW Std Deviation 44.3 RDW Coeff of Matthew 13.6 Plt Count 243 MPV 11.2 H Immature Gran % (Auto) Neut % (Auto) Lymph % (Auto) Dolores % (Auto) Eos % (Auto) Baso % (Auto) Neut # (Auto) Lymph # (Auto) Dolores # (Auto) Eos # (Auto) Baso # (Auto) Immature Gran # (Auto) Neutrophils % (Manual) 80.5 Lymphocytes % (Manual) 14.2 Monocytes % (Manual) 5.3 Neutrophils # (Manual) 3.63 Total Absolute Neuts 3.63 Lymphocytes # (Manual) 0.64 L Total Abs Lymphocytes 0.64 L Monocytes # (Manual) 0.24 D-Dimer Sodium 141 Potassium 3.4 L Chloride 103 Carbon Dioxide 30 Anion Gap 7.0 BUN 14 Creatinine 0.98 Est Cr Clr Drug Dosing 122.6 Est GFR ( Amer) 94.1 Est GFR (Non-Af Amer) 81.2 BUN/Creatinine Ratio 14.3 Glucose 149 H Calcium 8.9 Ferritin Total Bilirubin Alkaline Phosphatase Lactate Dehydrogenase Total Creatine Kinase Troponin I C-Reactive Protein NT-Pro-B Natriuret Pep Total Protein Globulin Albumin/Globulin Ratio Procalcitonin 0.14 TSH SARS-CoV-2 (PCR) Hepatitis C Ab Screen Influenza Type A (PCR) Influenza Type B (PCR) RSV (RT-PCR) 09/06/20 06:45 WBC RBC Hgb Hct MCV MCH MCHC RDW Std Deviation RDW Coeff of Matthew Plt Count MPV Immature Gran % (Auto) Neut % (Auto) Lymph % (Auto) Dolores % (Auto) Eos % (Auto) Baso % (Auto) Neut # (Auto) Lymph # (Auto) Dolores # (Auto) Eos # (Auto) Baso # (Auto) Immature Gran # (Auto) Neutrophils % (Manual) Lymphocytes % (Manual) Monocytes % (Manual) Neutrophils # (Manual) Total Absolute Neuts Lymphocytes # (Manual) Total Abs Lymphocytes Monocytes # (Manual) D-Dimer Sodium Potassium Chloride Carbon Dioxide Anion Gap BUN Creatinine Est Cr Clr Drug Dosing Est GFR ( Amer) Est GFR (Non-Af Amer) BUN/Creatinine Ratio Glucose Calcium Ferritin Total Bilirubin Alkaline Phosphatase Lactate Dehydrogenase Total Creatine Kinase Troponin I C-Reactive Protein NT-Pro-B Natriuret Pep Total Protein Globulin Albumin/Globulin Ratio Procalcitonin TSH SARS-CoV-2 (PCR) Hepatitis C Ab Screen Neg Influenza Type A (PCR) Influenza Type B (PCR) RSV (RT-PCR) Medications Administered Current Inpatient Medications Acetaminophen (Acetaminophen 325 Mg Tab) 650 mg PO Q4H PRN PRN Reason: pain/fever Stop: 10/05/20 17:41 Al Hydrox/Mg Hydrox/Simethicone (Aluminum/Magnesium Susp 30 Ml Udc) 30 ml PO Q6H PRN PRN Reason: Dyspepsia Stop: 10/05/20 17:41 Atorvastatin Calcium (Atorvastatin 20 Mg Tab) 20 mg PO PM [facility] Stop: 10/05/20 20:59 Last Admin: 09/05/20 20:23 Dose: 20 mg Documented by: Duloxetine HCl (Duloxetine Hcl 60 Mg Cap) 60 [facility] [place] Stop: 10/06/20 08:59 Last Admin: 09/06/20 09:55 Dose: 60 mg Documented by: Enoxaparin Sodium (Enoxaparin 80 Mg/0.8 Ml Syr) 80 mg SQ BID [facility] Stop: 10/05/20 20:59 Last Admin: 09/06/20 09:56 Dose: 80 mg Documented by: Furosemide (Furosemide 20 Mg Tab) 20 mg PO BID17 [facility] Stop: 10/05/20 17:41 Last Admin: 09/06/20 09:54 Dose: 20 mg Documented by: Dexamethasone Sodium Phosphate (6 mg/ Syringe) 1.5 mls @ 1 mls/min IV DAILY [facility] Stop: 10/06/20 12:59 Levothyroxine Sodium (Levothyroxine Sodium 112 Mcg Tablet) 112 mcg PO DAILYBB [facility] Stop: 10/06/20 06:29 Last Admin: 09/06/20 06:23 Dose: 112 mcg Documented by: Metoprolol Succinate (Metoprolol Succ 50mg Ext Rel Tab) 50 mg PO QAM [facility] Stop: 10/06/20 08:59 Last Admin: 09/06/20 09:55 Dose: 50 mg Documented by: Miscellaneous (Order Awaiting Action: Doxycycline 20mg) 1 ea N/A QS [facility] Stop: 10/06/20 15:59 Multivitamins (Multivitamin Tab) 1 tab PO Q[facility] [place] Stop: 10/06/20 08:59 Last Admin: 09/06/20 09:55 Dose: 1 tab Documented by: Ondansetron HCl (Ondansetron Inj 2 Mg/Ml 2 Ml Vial) 4 mg IV Q6H PRN PRN Reason: Nausea Stop: 10/05/20 17:41 Polyethylene Glycol (Polyethylene (Miralax) 17 Gm Pack) 17 gm PO DAILY PRN PRN Reason: Constipation Stop: 10/05/20 17:41 Potassium Chloride (Potassium Chloride Crtab 20 Meq Tabcr) 20 meq PO TID [facility] Stop: 10/06/20 13:59 Sacubitril/Valsartan (Sacubitril-Valsartan 97-103 Mg Tab) 1 tab PO BID [facility] Stop: 10/05/20 20:59 Last Admin: 09/06/20 09:54 Dose: 1 tab Documented by: Tamsulosin HCl (Tamsulosin Hcl 0.4 Mg Cap) 0.4 mg PO HS [facility] Stop: 10/05/20 20:59 Last Admin: 09/05/20 20:24 Dose: 0.4 mg Documented by: Tramadol HCl (Tramadol Hcl 50 Mg Tablet) 100 mg PO QAM PRN PRN Reason: Pain Stop: 10/06/20 10:44 Vitamin D (Cholecalciferol 1,000 Units 25 Mcg Tab) 1,000 units PO QAM [facility] Stop: 10/06/20 08:59 Last Admin: 09/06/20 09:54 Dose: 1,000 units Documented by: PG Care Time/CCT Total # of Minutes Spent Total Time Spent: 31 Total Time Spent with Patient: Total time spent is greater than 50% in coordination of care (as documented) at patient's floor/unit and/or counseling patient: Coding Level of Care Code 61429 Subseq Hosp Care Lvl 3 Diagnoses Acute respiratory failure with hypoxia J96.01 Pneumonia due to COVID-19 virus U07.1; J12.82 Hypokalemia E87.6 Obstructive sleep apnea G47.33 Congestive heart failure I50.9 Presence of combination internal cardiac defibrillator (ICD) and pacemaker Z95.810 Hypothyroidism E03.9 BPH (benign prostatic hyperplasia) N40.0 Chronic hip pain M25.559; G89.29 Acne rosacea L71.9 DVT prophylaxis Z29.9
[2020-09-06] MEDS: POTASSIUM CHLORIDE CRTAB 20 MEQ TABCR PO SCH ×2 (13:58→20:49)
[2020-09-06] MEDS: dexAMETHasone 6 MG in SYRINGE 0 ML IV SCH (13:58)
[2020-09-06] MEDS ORDERED: LOPERAMIDE HCL 2 MG CAP PO PRN (14:57)
[2020-09-06] MEDS: TAMSULOSIN HCL 0.4 MG CAP PO SCH (20:49)
[2020-09-06] MEDS: ATORVASTATIN 20 MG TAB PO SCH (20:49)
[2020-09-07] MEDS: LEVOTHYROXINE SODIUM 112 MCG TABLET PO SCH (06:17)
[2020-09-07 06:27] LABS: Hematocrit (blood only) 42.6 % (42-52); Hemoglobin 14.6 g/dL (14.0-18.0); Mean Corpuscular Hemoglobin 30.4 pg (25-34); Mean Corpuscular Hgb Conc 34.3 g/dL (32-36); Mean Corpuscular Volume 88.6 fL (80-100); Mean Platelet Volume 11.6 fL (7.4-10.4); Platelet Count 269 K/uL (130-400); RDW Coefficient of Variation 13.5 % (11.5-14.5); Red Blood Count 4.81 M/uL (4.7-6.1); White Blood Count 5.62 K/uL (4.8-10.8)
[2020-09-07 06:57] LABS: BUN Creatinine Ratio 22.5 (10-20); Calcium 8.8 mg/dl (8.5-10.1); Est GFR (African American) 104.7; Est GFR (Non-African American) 90.4; Potassium 3.5 mmol/L (3.5-5.1)
[2020-09-07] MEDS: ENOXAPARIN 80 MG/0.8 ML SYR SQ SCH ×2 (09:05→21:22)
[2020-09-07] MEDS: METOPROLOL SUCC 50MG EXT REL TAB PO SCH (09:06)
[2020-09-07] MEDS: CHOLECALCIFEROL 1,000 UNITS 25 MCG TAB PO SCH (09:06)
[2020-09-07] MEDS: dexAMETHasone 6 MG in SYRINGE 0 ML IV SCH (09:06)
[2020-09-07] MEDS: MULTIVITAMIN TAB PO SCH (09:06)
[2020-09-07] MEDS: SACUBITRIL-VALSARTAN 97-103 MG TAB PO SCH ×2 (09:06→21:22)
[2020-09-07] MEDS: FUROSEMIDE 20 MG TAB PO SCH ×2 (09:06→17:07)
[2020-09-07] MEDS: DULoxetine HCL 60 MG CAP PO SCH (09:06)
[2020-09-07] MEDS: POTASSIUM CHLORIDE CRTAB 20 MEQ TABCR PO SCH ×2 (09:06→21:22)
--- NOTE | 2020-09-07 11:21 | Hospitalist Progress Note ---
Date of Service September 07, 2020 Assessment & Plan (1) Acute respiratory failure with hypoxia: due to COVID-19 pneumonia. stable today on 5L NC, saturations >90%, no distress try to titrate as tolerated, keep lungs dry with home dose of Lasix 20mg BID compliant with flutter valve and incentive spirometer subjectively he feels a lot better today (2) Pneumonia due to COVID-19 virus: Lack of evidence of efficacy of remdesivir and convalescent plasma with potential risk this far out from illness. Dexamethasone 6 mg IV daily for total of 10 days, day 3 today will give Zithromax 500mg daily due to productive cough add flutter valve, working well to help mobilize sputum (3) Hypokalemia: up to 3.5 today, will cut supplementation to BID (4) Obstructive sleep apnea: Continue CPAP at night with 6 cm H2O (5) Congestive heart failure: chronic diastolic HF Continue Entresto and metoprolol succinate. Continue Lasix 20 mg p.o. twice daily, keep lungs dry with COVID (6) Presence of combination internal cardiac defibrillator (ICD) and pacemaker: Patient is unclear on the reasons for this pain implanted, currently not in a paced rhythm. Monitor on telemetry. (7) Hypothyroidism: TSH 2.18 Continue levothyroxine 112 mcg p.o. every morning (8) BPH (benign prostatic hyperplasia): Continue tamsulosin 0.4 mg at bedtime (9) Chronic hip pain: Continue home dose of duloxetine and tramadol. (10) Acne rosacea: Continue doxycycline 20 mg twice daily (11) DVT prophylaxis: Lovenox 80 mg SQ twice daily (increased dose due to morbid obesity and COVID-19 pneumonia) Admission and Anticipated Discharge Date Admission Date: September 05, 2020 Subjective patient doing well today, he is breathing comfortably on 5L he can walk to the bathroom without dyspnea, he has been sitting upright in the chair he can pull a tidal volume of 2000mL on the incentive spirometer no fever/chills, + cough and flutter valve helping bring up some phlegm has some diarrhea and causing some bright red blood per rectum from his hemorrhoids, no pain, just blood labs show CBC normal, BMP stable and K is 3.5, Cr 0.89 Review of Systems Review of Systems: All systems reviewed & are unremarkable except as noted in Subjective Constitutional: no fever, no chills, no sweats, no fatigue and no weakness Respiratory: + cough, + chest congestion, + dyspnea, + dyspnea on exertion and + sputum production; no wheezing Cardiovascular: no chest pain and no edema Gastrointestinal: + diarrhea/loose stools and + blood in stools (red blood, hemorrhoids); no abdominal pain, no nausea, no vomiting and no constipation Physical Exam Constitutional: well developed, + morbidly obese and comfortable; no acute distress Neck: trachea midline, no thyromegaly + thick neck Respiratory: normal respiratory effort and + cough; no respiratory distress and no labored breathing Auscultation: lungs clear to auscultation bilaterally Cardiovascular: Rate/Rhythm: regular rate and regular rhythm Heart Sounds: normal S1 and normal S2; no murmur Vessels: no JVD Extremities: normal capillary refill and + edema (1+ in ankles) Gastrointestinal (Abdomen): normal bowel sounds, soft, nontender, no hepatosplenomegaly Musculoskeletal: no cyanosis or clubbing, extremities motor strength 5/5 Skin: no rashes, warm and dry Neurologic: patellar DTR's 2+ bilat, sensation intact and PERRL, EOMI, accommodation nl, no face palsy, no dysarthria Psychiatric: A+Ox3, euthymic affect Lymphatic: no cervical or axillary lymphadenopathy Results & Data Results & Data ([facility]) Vital Signs (Past 12 Hours) Vital Signs Temp Pulse Pulse Resp BP Pulse Ox 09/07/20 08:07 36.6 C 64 18 121/84 91 09/07/20 03:23 60 18 88 L 09/07/20 00:06 36.6 C 63 18 110/70 92 Laboratory Results Laboratory Results - last 24 hr 09/07/20 09/07/20 05:40 05:40 WBC 5.62 RBC 4.81 Hgb 14.6 Hct 42.6 MCV 88.6 MCH 30.4 MCHC 34.3 RDW Std Deviation 44.0 RDW Coeff of Matthew 13.5 Plt Count 269 MPV 11.6 H Sodium 142 Potassium 3.5 Chloride 107 Carbon Dioxide 29 Anion Gap 6.0 BUN 20 H Creatinine 0.89 Est Cr Clr Drug Dosing 135.0 Est GFR ( Amer) 104.7 Est GFR (Non-Af Amer) 90.4 BUN/Creatinine Ratio 22.5 H Glucose 141 H Calcium 8.8 Medications Administered Current Inpatient Medications Acetaminophen (Acetaminophen 325 Mg Tab) 650 mg PO Q4H PRN PRN Reason: pain/fever Stop: 10/05/20 17:41 Al Hydrox/Mg Hydrox/Simethicone (Aluminum/Magnesium Susp 30 Ml Udc) 30 ml PO Q6H PRN PRN Reason: Dyspepsia Stop: 10/05/20 17:41 Atorvastatin Calcium (Atorvastatin 20 Mg Tab) 20 mg PO PM [facility] Stop: 10/05/20 20:59 Last Admin: 09/06/20 20:49 Dose: 20 mg Documented by: Duloxetine HCl (Dulox[facility] Hcl 60 Mg Cap) [facility] Stop: 10/06/20 08:59 Last Admin: 09/07/20 09:06 Dose: 60 mg Documented by: Enoxaparin Sodium (Enoxaparin 80 Mg/0.8 Ml Syr) 80 mg SQ BID [facility] Stop: 10/05/20 20:59 Last Admin: 09/07/20 09:05 Dose: 80 mg Documented by: Furosemide (Furosemide 20 Mg Tab) 20 mg PO BID17 [facility] Stop: 10/05/20 17:41 Last Admin: 09/07/20 09:06 Dose: 20 mg Documented by: Dexamethasone Sodium Phosphate (6 mg/ Syringe) 1.5 mls @ 1 mls/min IV DAILY [facility] Stop: 10/06/20 12:59 Last Admin: 09/07/20 09:06 Dose: 1 mls/min Documented by: Levothyroxine Sodium (Levothyroxine Sodium 112 Mcg Tablet) 112 mcg PO DAILYBB [facility] Stop: 10/06/20 06:29 Last Admin: 09/07/20 06:17 Dose: 112 mcg Documented by: Loperamide HCl (Loperamide Hcl 2 Mg Cap) 2 mg PO Q6 PRN PRN Reason: Diarrhea Stop: 10/06/20 14:56 Last Admin: 09/07/20 10:28 Dose: 2 mg Documented by: Metoprolol Succinate (Metoprolol Succ 50mg Ext Rel Tab) 50 mg PO QAM [facility] Stop: 10/06/20 08:59 Last Admin: 09/07/20 09:06 Dose: 50 mg Documented by: Miscellaneous (Order Awaiting Action: Doxycycline 20mg) 1 ea N/A QS [facility] Stop: 10/06/20 15:59 Last Admin: 09/07/20 09:05 Dose: Not Given Documented by: Multivitamins (Multivitamin Tab) 1 tab PO QAM [facility] Stop: 10/06/20 08:59 Last Admin: 09/07/20 09:06 Dose: 1 tab Documented by: Ondansetron HCl (Ondansetron Inj 2 Mg/Ml 2 Ml Vial) 4 mg IV Q6H PRN PRN Reason: Nausea Stop: 10/05/20 17:41 Polyethylene Glycol (Polyethylene (Miralax) 17 Gm Pack) 17 gm PO DAILY PRN PRN Reason: Constipation Stop: 10/05/20 17:41 Potassium Chloride (Potassium Chloride Crtab 20 Meq Tabcr) 20 meq PO TID [facility] Stop: 10/06/20 13:59 Last Admin: 09/07/20 09:06 Dose: 20 meq Documented by: Sacubitril/Valsartan (Sacubitril-Valsartan 97-103 Mg Tab) 1 tab PO BID [facility] Stop: 10/05/20 20:59 Last Admin: 09/07/20 09:06 Dose: 1 tab Documented by: Tamsulosin HCl (Tamsulosin Hcl 0.4 Mg Cap) 0.4 mg PO HS [facility] Stop: 10/05/20 20:59 Last Admin: 09/06/20 20:49 Dose: 0.4 mg Documented by: Tramadol HCl (Tramadol Hcl 50 Mg Tablet) 100 mg PO QAM PRN PRN Reason: Pain Stop: 10/06/20 10:44 Vitamin D (Cholecalciferol 1,000 Units 25 Mcg Tab) 1,000 units PO QAM [facility] Stop: 10/06/20 08:59 Last Admin: 09/07/20 09:06 Dose: 1,000 units Documented by: PG Care Time/CCT Total # of Minutes Spent Total Time Spent with Patient: Total time spent is greater than 50% in coordination of care (as documented) at patient's floor/unit and/or counseling patient: Coding Level of Care Code 50521 Subseq Hosp Care Lvl 2 Diagnoses Acute respiratory failure with hypoxia J96.01 Pneumonia due to COVID-19 virus U07.1; J12.82 Hypokalemia E87.6 Obstructive sleep apnea G47.33 Congestive heart failure I50.9 Presence of combination internal cardiac defibrillator (ICD) and pacemaker Z95.810 Hypothyroidism E03.9 BPH (benign prostatic hyperplasia) N40.0 Chronic hip pain M25.559; G89.29 Acne rosacea L71.9 DVT prophylaxis Z29.9
[2020-09-07] MEDS ORDERED: AZITHROMYCIN 250 MG TAB PO ONE (12:00)
[2020-09-07] MEDS: TAMSULOSIN HCL 0.4 MG CAP PO SCH (21:22)
[2020-09-07] MEDS: ATORVASTATIN 20 MG TAB PO SCH (21:22)
[2020-09-08] MEDS: LEVOTHYROXINE SODIUM 112 MCG TABLET PO SCH (05:57)
[2020-09-08] MEDS: POTASSIUM CHLORIDE CRTAB 20 MEQ TABCR PO SCH ×2 (09:52→20:24)
[2020-09-08] MEDS: CHOLECALCIFEROL 1,000 UNITS 25 MCG TAB PO SCH (09:53)
[2020-09-08] MEDS: METOPROLOL SUCC 50MG EXT REL TAB PO SCH (09:53)
[2020-09-08] MEDS: AZITHROMYCIN 250 MG TAB PO SCH (09:53)
[2020-09-08] MEDS: FUROSEMIDE 20 MG TAB PO SCH ×2 (09:53→17:20)
[2020-09-08] MEDS: MULTIVITAMIN TAB PO SCH (09:53)
[2020-09-08] MEDS: DULoxetine HCL 60 MG CAP PO SCH (09:53)
[2020-09-08] MEDS: SACUBITRIL-VALSARTAN 97-103 MG TAB PO SCH ×2 (09:54→20:24)
[2020-09-08] MEDS: dexAMETHasone 6 MG in SYRINGE 0 ML IV SCH (09:54)
[2020-09-08] MEDS: ENOXAPARIN 80 MG/0.8 ML SYR SQ SCH ×2 (09:54→20:23)
--- NOTE | 2020-09-08 11:18 | Hospitalist Progress Note ---
Date of Service September 08, 2020 Assessment & Plan (1) Acute respiratory failure with hypoxia: due to COVID-19 pneumonia. stable today on 3L NC, saturations >90%, no distress (this is improvement from 5L yesterday) try to titrate as tolerated, keep lungs dry with home dose of Lasix 20mg BID anticipate him coming off oxygen in next 2 days if he continues on this trajectory compliant with flutter valve and incentive spirometer subjectively he feels a lot better past two days (2) Pneumonia due to COVID-19 virus: Dexamethasone 6 mg IV daily for total of 10 days, day 4 today will give Zithromax 500mg daily due to productive cough, day 4 add flutter valve, working well to help mobilize sputum not a candidate for Remdesivir or plasma (3) Hypokalemia: up to 3.5 on 09/07, will cut supplementation to BID check BMP tomorrow (4) Obstructive sleep apnea: Continue CPAP at night with 6 cm H2O (5) Congestive heart failure: chronic diastolic HF Continue Entresto and metoprolol succinate. Continue Lasix 20 mg p.o. twice daily, keep lungs dry with COVID (6) Presence of combination internal cardiac defibrillator (ICD) and pacemaker: Patient is unclear on the reasons for this pain implanted, currently not in a paced rhythm. Monitor on telemetry. (7) Hypothyroidism: TSH 2.18 Continue levothyroxine 112 mcg p.o. every morning (8) BPH (benign prostatic hyperplasia): Continue tamsulosin 0.4 mg at bedtime (9) Chronic hip pain: Continue home dose of duloxetine and tramadol. (10) Acne rosacea: Continue doxycycline 20 mg twice daily (11) DVT prophylaxis: Lovenox 80 mg SQ twice daily (increased dose due to morbid obesity and COVID-19 pneumonia) Admission and Anticipated Discharge Date Admission Date: September 05, 2020 Subjective patient feeling better, down to 3L NC, no distress, he can walk to the bathroom without distress/dyspnea no fever/chills, coughing less, using his incentive spirometer eating and drinking well, his stools are more solid today, making urine no labs today, stable yesterday hopeful for discharge in the next 2-3 days Review of Systems Review of Systems: All systems reviewed & are unremarkable except as noted in Subjective Respiratory: + cough and + dyspnea; no sputum production Cardiovascular: + edema (chronic); no chest pain Gastrointestinal: + blood in stools (hemorrhoids, minimal bleeding); no abdominal pain, no nausea, no vomiting, no constipation and no diarrhea/loose stools Physical Exam Constitutional: well developed, + morbidly obese and comfortable; no acute distress Neck: trachea midline, no thyromegaly + thick neck Respiratory: normal respiratory effort and + cough; no respiratory distress and no labored breathing Auscultation: lungs clear to auscultation bilaterally Cardiovascular: Rate/Rhythm: regular rate and regular rhythm Heart Sounds: normal S1 and normal S2; no murmur Vessels: no JVD Extremities: normal capillary refill and + edema (1+ in ankles) Gastrointestinal (Abdomen): normal bowel sounds, soft, nontender, no hepatosplenomegaly Musculoskeletal: no cyanosis or clubbing, extremities motor strength 5/5 Skin: no rashes, warm and dry Neurologic: patellar DTR's 2+ bilat, sensation intact and PERRL, EOMI, accommodation nl, no face palsy, no dysarthria Psychiatric: A+Ox3, euthymic affect Lymphatic: no cervical or axillary lymphadenopathy Results & Data Results & Data ([facility]) Vital Signs (Past 12 Hours) Vital Signs Temp Pulse Pulse Resp BP Pulse Ox Pulse Ox 09/08/20 07:39 36.6 C 73 20 123/70 92 09/08/20 03:45 66 17 95 09/08/20 03:00 93 09/07/20 23:34 36.6 C 67 16 98/59 L 92 Medications Administered Current Inpatient Medications Acetaminophen (Acetaminophen 325 Mg Tab) 650 mg PO Q4H PRN PRN Reason: pain/fever Stop: 10/05/20 17:41 Al Hydrox/Mg Hydrox/Simethicone (Aluminum/Magnesium Susp 30 Ml Udc) 30 ml PO Q6H PRN PRN Reason: Dyspepsia Stop: 10/05/20 17:41 Atorvastatin Calcium (Atorvastatin 20 Mg Tab) 20 mg PO PM [facility] Stop: 10/05/20 20:59 Last Admin: 09/07/20 21:22 Dose: 20 mg Documented by: Azithromycin (Azithromycin 250 Mg Tab) 250 mg PO QAM [facility] Stop: 09/15/20 08:59 Last Admin: 09/08/20 09:53 Dose: 250 mg Documented by: Duloxetine HCl (Duloxetine Hcl 60 Mg Cap) [facility] [place] [facility] [place]: 10/06/20 08:59 Last Admin: 09/08/20 09:53 Dose: 60 mg Documented by: Enoxaparin Sodium (Enoxaparin 80 Mg/0.8 Ml Syr) 80 mg SQ BID [facility] Stop: 10/05/20 20:59 Last Admin: 09/08/20 09:54 Dose: 80 mg Documented by: Furosemide (Furosemide 20 Mg Tab) 20 mg PO BID17 [facility] Stop: 10/05/20 17:41 Last Admin: 09/08/20 09:53 Dose: 20 mg Documented by: Dexamethasone Sodium Phosphate (6 mg/ Syringe) 1.5 mls @ 1 mls/min IV DAILY [facility] Stop: 10/06/20 12:59 Last Admin: 09/08/20 09:54 Dose: 1 mls/min Documented by: Levothyroxine Sodium (Levothyroxine Sodium 112 Mcg Tablet) 112 mcg PO DAILYBB [facility] Stop: 10/06/20 06:29 Last Admin: 09/08/20 05:57 Dose: 112 mcg Documented by: Loperamide HCl (Loperamide Hcl 2 Mg Cap) 2 mg PO Q6 PRN PRN Reason: Diarrhea Stop: 10/06/20 14:56 Last Admin: 09/07/20 10:28 Dose: 2 mg Documented by: Metoprolol Succinate (Metoprolol Succ 50mg Ext Rel Tab) 50 mg PO [facility] Stop: 10/06/20 08:59 Last Admin: 09/08/20 09:53 Dose: 50 mg Documented by: Miscellaneous (Order Awaiting Action: Doxycycline 20mg) 1 ea N/A QS [facility] Stop: 10/06/20 15:59 Last Admin: 09/08/20 09:36 Dose: Not Given Documented by: Multivitamins (Multivitamin Tab) 1 tab PO [facility] Stop: 10/06/20 08:59 Last Admin: 09/08/20 09:53 Dose: 1 tab Documented by: Ondansetron HCl (Ondansetron Inj 2 Mg/Ml 2 Ml Vial) 4 mg IV Q6H PRN PRN Reason: Nausea Stop: 10/05/20 17:41 Polyethylene Glycol (Polyethylene (Miralax) 17 Gm Pack) 17 gm PO DAILY PRN PRN Reason: Constipation Stop: 10/05/20 17:41 Potassium Chloride (Potassium Chloride Crtab 20 Meq Tabcr) 20 meq PO BID [facility] Stop: 10/07/20 20:59 Last Admin: 09/08/20 09:52 Dose: 20 meq Documented by: Sacubitril/Valsartan (Sacubitril-Valsartan 97-103 Mg Tab) 1 tab PO BID [facility] Stop: 10/05/20 20:59 Last Admin: 09/08/20 09:54 Dose: 1 tab Documented by: Tamsulosin HCl (Tamsulosin Hcl 0.4 Mg Cap) 0.4 mg PO HS [facility] Stop: 10/05/20 20:59 Last Admin: 09/07/20 21:22 Dose: 0.4 mg Documented by: Tramadol HCl (Tramadol Hcl 50 Mg Tablet) 100 mg PO QAM PRN PRN Reason: Pain Stop: 10/06/20 10:44 Vitamin D (Cholecalciferol 1,000 Units 25 Mcg Tab) 1,000 units PO QAM [facility] Stop: 10/06/20 08:59 Last Admin: 09/08/20 09:53 Dose: 1,000 units Documented by: PG Care Time/CCT Total # of Minutes Spent Total Time Spent with Patient: Total time spent is greater than 50% in coordination of care (as documented) at patient's floor/unit and/or counseling patient: Coding Level of Care Code 23050 Subseq Hosp Care Lvl 2 Diagnoses Acute respiratory failure with hypoxia J96.01 Pneumonia due to COVID-19 virus U07.1; J12.82 Hypokalemia E87.6 Obstructive sleep apnea G47.33 Congestive heart failure I50.9 Presence of combination internal cardiac defibrillator (ICD) and pacemaker Z95.810 Hypothyroidism E03.9 BPH (benign prostatic hyperplasia) N40.0 Chronic hip pain M25.559; G89.29 Acne rosacea L71.9 DVT prophylaxis Z29.9
[2020-09-08] MEDS: TAMSULOSIN HCL 0.4 MG CAP PO SCH (20:23)
[2020-09-08] MEDS: DOXYCYCLINE HYCLATE 50 MG CAP PO SCH (20:24)
[2020-09-08] MEDS: ATORVASTATIN 20 MG TAB PO SCH (20:24)
[2020-09-09] MEDS: LEVOTHYROXINE SODIUM 112 MCG TABLET PO SCH (05:39)
[2020-09-09 07:38] LABS: Hematocrit (blood only) 42.2 % (42-52); Hemoglobin 14.2 g/dL (14.0-18.0); Mean Corpuscular Hemoglobin 30.1 pg (25-34); Mean Corpuscular Hgb Conc 33.6 g/dL (32-36); Mean Corpuscular Volume 89.4 fL (80-100); Mean Platelet Volume 11.1 fL (7.4-10.4); Platelet Count 324 K/uL (130-400); RDW Coefficient of Variation 13.5 % (11.5-14.5); RDW Standard Deviation 44.4 fL (36.4-46.3); Red Blood Count 4.72 M/uL (4.7-6.1); White Blood Count 7.29 K/uL (4.8-10.8)
[2020-09-09 08:20] LABS: BUN Creatinine Ratio 16.5 (10-20); Creatinine Clr Calc Pharmacy 112.3 ml/min; Est GFR (African American) 84.6; Magnesium 2.3 mg/dl (1.8-2.4); Phosphorus 3.6 mg/dl (2.5-4.9); Potassium 3.8 mmol/L (3.5-5.1)
[2020-09-09] MEDS: dexAMETHasone 6 MG in SYRINGE 0 ML IV SCH (08:58)
[2020-09-09] MEDS: ENOXAPARIN 80 MG/0.8 ML SYR SQ SCH (08:58)
[2020-09-09] MEDS: CHOLECALCIFEROL 1,000 UNITS 25 MCG TAB PO SCH (09:00)
[2020-09-09] MEDS: AZITHROMYCIN 250 MG TAB PO SCH (09:00)
[2020-09-09] MEDS: FUROSEMIDE 20 MG TAB PO SCH (09:00)
[2020-09-09] MEDS: SACUBITRIL-VALSARTAN 97-103 MG TAB PO SCH (09:00)
[2020-09-09] MEDS: MULTIVITAMIN TAB PO SCH (09:00)
[2020-09-09] MEDS: METOPROLOL SUCC 50MG EXT REL TAB PO SCH (09:00)
[2020-09-09] MEDS: DOXYCYCLINE HYCLATE 50 MG CAP PO SCH (09:00)
[2020-09-09] MEDS: POTASSIUM CHLORIDE CRTAB 20 MEQ TABCR PO SCH (09:00)
[2020-09-09] MEDS: DULoxetine HCL 60 MG CAP PO SCH (09:00)
--- NOTE | 2020-09-09 13:45 | Discharge Summary ---
Date of Service September 09, 2020 Admission HPI Per Admitting Provider Nico Cancino is a 65-year-old male who presents to the ER with 1 week of shortness of breath. He reports that he had his first COVID-19 vaccination 12 days ago. He initially was doing well after this. However, 1 week ago he started having fever, chills, shortness of breath, cough, change in taste, myalgias, mild headache, diarrhea. He denies any nausea, vomiting, chest or abdominal pain. No known COVID-19 exposure. His underwent a lumpectomy today and had a negative Covid test 4 days ago and is currently asymptomatic. No prior past medical history on file. Somewhat limited by patient recollection and educated guesses from his medication list. He reports only specialist is his cardiology Dr Vallejo whom he sees for congestive heart failure. Unknown reason for his ICD/pacemaker other than it was put in under an emergency per patient recollection. He reports a possible mild myocardial infarction last summer although this was treated medically with no stents or bypass and he reports his cardiac catheterization showed nonobstructive coronary artery disease. He also reports a history of congestive heart failure although unknown ejection fraction. No known valvular heart disease per patient recollection. Reports stable benign prostatic hypertrophy on tamsulosin -no current lower urinary tract symptoms. 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 He denies taking any chronic suppressive antibiotic therapy. Reports taking duloxetine and tramadol for his ongoing left hip pain. Medical and surgical history otherwise stable as below. In the ER chest x-ray was concerning for mild to moderate bilateral airspace opacities concerning for viral pneumonia. He was initially treated with ceftriaxone and azithromycin. He was referred to medicine for admission and ongoing management of hypoxia and bilateral pneumonia. Principal Diagnosis Covid-19 pneumonia, acute respiratory failure with hypoxia Discharge Exam Constitutional WD/WN, vitals as above + morbidly obese Eyes + anicteric sclerae Neck trachea midline, no thyromegaly Respiratory normal respiratory effort, lungs clear to auscultation Cardiovascular RRR, no murmur, no edema Chest (Breasts) Chest: normal inspection of chest Gastrointestinal (Abdomen) normal bowel sounds, soft, nontender, no hepatosplenomegaly Musculoskeletal Extremities: extremities normal to inspection; no cyanosis and no clubbing Skin no rashes, warm and dry Neurologic moves all extremities and awake; no focal motor deficits Psychiatric A+Ox3, euthymic affect Lymphatic no lymphedema Discharge Data Allergies Allergy/AdvReac Type Severity Reaction Status Date / Time No Known Allergies Allergy Unknown ? Verified 09/05/20 15:01 Consultations 09/05/20 14:44 ED Decision to Admit Stat Ordered Studies Chest x-ray Hospital Course (1) Acute respiratory failure with hypoxia: due to COVID-19 pneumonia. Previously on 5 L and now weaned to room air even with exertion as per testing on the day of discharge compliant with flutter valve and incentive spirometer Much improved and stable for discharge to home (2) Pneumonia due to COVID-19 virus: Much improved No respiratory distress, is weaned completely off of oxygen -Continue dexamethasone 6 mg daily for 7 more days after discharge -Continue Zithromax 250 mg daily due to productive cough x2 more days -Continue flutter valve, incentive spirometry-working well to help mobilize sputum He was not a candidate for Remdesivir or plasma (3) Hypokalemia: Resolved with supplementation (4) Obstructive sleep apnea: Continue CPAP at night with 6 cm H2O (5) Congestive heart failure: 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 Continue Lasix 20 mg p.o. twice daily (6) Presence of combination internal cardiac defibrillator (ICD) and pacemaker: Patient is unclear on the reasons for this pain implanted, currently not in a paced rhythm. (7) Hypothyroidism: TSH 2.18 Continue levothyroxine 112 mcg p.o. every morning (8) BPH (benign prostatic hyperplasia): No acute issues Continue tamsulosin 0.4 mg at bedtime (9) Chronic hip pain: Continue home dose of duloxetine and tramadol. (10) Acne rosacea: Continue doxycycline 20 mg twice daily (11) Hemorrhoids: Patient has chronic issues with hemorrhoids but seem to be bleeding more here since being on the Lovenox SQ and is having frequent bowel movements since having Covid -Prescribed hydrocortisone suppositories for daily use at home He will be off Lovenox once he goes home which should help also Follow-up with PCP (12) DVT prophylaxis: Lovenox 80 mg SQ twice daily (increased dose due to morbid obesity and COVID-19 pneumonia) was used This position-stable for discharge to home Total Time Total Time Spent Total Time Spent (In Minutes): 35 minutes Total Time Includes: Examination of the Patient, Discharge Planning and Medication Reconciliation Discharge Plan Discharge Items Patient Disposition: Home - Home Health Services Reason For Visit: HYPOXIA, COVID-19 PNEUMONIA Discharge Diagnosis: Covid-19 pneumonia, acute respiratory failure with hypoxia Condition on Discharge: Good Activity: As commented below Lifting: Gradually increase as tolerated Bathing: No limitations Exercise/Sports: Gradually increase as tolerated Non-emergency contact: Primary Care Provider Call non-emergency contact if: you have any medication questions and your symptoms worsen Follow-up/Referrals: Gregory Diamond [Primary Care Provider] - (Please follow-up within 1 to 2 weeks) Diet: Heart Healthy and Low Sodium (2gm) Addtl Attending Provider Instructions: You were admitted with COVID-19 pneumonia and low oxygen levels. You are much improved at the time of discharge. You do not need oxygen as per testing on the day of discharge from the hospital. Please finish out the course of dexamethasone (steroid to reduce inflammation in the lungs) and 2 more days of the antibiotic called azithromycin. Please continue your other medications as usual. Follow-up with your primary care physician within 1 to 2 weeks after discharge. Pending Studies at Discharge: No Stand-Alone Forms: [facility], Smoking Cessation Medications and DC Order Prescriptions: New azithromycin 250 mg Tablet 250 mg PO QAM 2 Days Qty: 2 RF: 0 dexamethasone 6 mg tablet 6 mg PO DAILY Qty: 7 RF: 0 hydrocortisone acetate 25 mg suppository 25 mg GA DAILY PRN (Reason: hemorrhoids) Qty: 12 RF: 0 Continued furosemide [Lasix] 20 mg Tablet 20 mg PO BID Qty: 0 RF: 0 multivitamin Tablet 1 tab PO QAM Qty: 0 RF: 0 cholecalciferol (vitamin D3) [Vitamin D3] 25 mcg (1,000 unit) Tablet 25 mcg PO QAM Qty: 0 RF: 0 atorvastatin 20 mg Tablet 20 mg PO PM Qty: 0 RF: 0 cyclobenzaprine 10 mg tablet 10 mg PO DIRECTED PRN (Reason: muscle spasms) RF: 0 metoprolol succinate 50 mg tablet extended release 24 hr 50 mg PO QAM RF: 0 jebeplukd-TSO-LB-acetaminophen 7.5-60-30-1,000 mg/30 mL Liquid 30 ml PO QID PRN (Reason: Cold Symptoms) RF: 0 tramadol 50 mg tablet 100 mg PO QAM RF: 0 acetaminophen 650 mg Tablet Extended Release 1,300 mg PO Q12H PRN (Reason: Pain) RF: 0 tamsulosin 0.4 mg capsule 0.4 mg PO HS RF: 0 doxycycline hyclate 20 mg tablet 20 mg PO BID RF: 0 levothyroxine 112 mcg tablet 112 mcg PO QAM RF: 0 duloxetine 60 mg capsule,delayed release(DR/EC) 60 mg PO QAM RF: 0 Entresto 97-103 mg tablet 1 tab PO BID RF: 0 Discharge Orders: Discharge Order (Routine); Ordered 09/09/20 Ordered By: Luz Olvera Admission Data Admit Date/Time: 09/05/20 15:08 Attending Provider: Luz Olvera Admit Provider: Natan Ferguson Primary Care Provider: Gregory Diamond Other Providers: Natan Ferguson ; Star Sánchez Coding Level of Care Code D/C Day Management >30 mins Diagnoses Acute respiratory failure with hypoxia J96.01 Pneumonia due to COVID-19 virus U07.1; J12.82 Hypokalemia E87.6 Obstructive sleep apnea G47.33 Congestive heart failure I50.9 Presence of combination internal cardiac defibrillator (ICD) and pacemaker Z95.810 Hypothyroidism E03.9 BPH (benign prostatic hyperplasia) N40.0 Chronic hip pain M25.559; G89.29 Acne rosacea L71.9 Hemorrhoids K64.9 DVT prophylaxis Z29.9
== END 2020-09-09 18:31 | disposition home or self-care (01) | DRG 177 ==
LOC: ED 13:02 → SUATTDRO 15:08 → 2N 15:08